=== PATIENT | female | born 1990 | race African-American/Black ===

== ENCOUNTER 2017-01-18 20:12 | Emergency (ER) | payer MEDICAID ==
[~2017-01-18] VITALS: Ht 165.1 cm; Wt 109.5 kg
[2017-01-18 20:36] VITALS: BP 121/81
[2017-01-18] MEDS ORDERED: methylPREDNISolone SOD SUCC 125 MG/2 ML VL IM ONE (23:45)
== END 2017-01-19 00:24 | disposition home or self-care (01) ==
LOC: ER 20:18
DX: J02.9 Acute pharyngitis, unspecified (principal); H10.31 Unspecified acute conjunctivitis, right eye; R06.02 Shortness of breath
CPT/HCPCS: 96372; 99283; J2930

== ENCOUNTER 2017-12-17 20:02 | Emergency (ER) | payer MEDICAID ==
[~2017-12-17] VITALS: Ht 165.1 cm; Wt 108.9 kg
[2017-12-17 20:21] VITALS: BP 138/86
[2017-12-17] MEDS ORDERED: TETANUS-DIPTH-ACEL PERTUSSIS 0.5ML SYRG IM ONE (21:45)
[2017-12-17] MEDS ORDERED: cefTRIAXone W LIDOCAINE 750MG IM IM ONE (21:45)
[2017-12-17] MEDS ORDERED: cefTRIAXone SOD 1,000 MG VL ONE (22:04)
[2017-12-17] MEDS ORDERED: LIDOCAINE 2% (LOCAL ANESTH.) PF 5ml SDV ONE (22:05)
== END 2017-12-17 22:37 | disposition home or self-care (01) ==
LOC: ER 20:02
DX: S91.331A Puncture wound without foreign body, right foot, initial encounter (principal); F17.210 Nicotine dependence, cigarettes, uncomplicated; W22.8XXA Striking against or struck by other objects, initial encounter; Y93.89 Activity, other specified; Y99.8 Other external cause status; Y92.89 Other specified places as the place of occurrence of the external cause
CPT/HCPCS: 73630; 90471; 90715; 96372; 99284; J0696